=== PATIENT | male | born 1970 | race Caucasian/White ===

== ENCOUNTER 2020-12-29 12:12 | Emergency (ER) | payer BC, SELFPAY ==
--- NOTE | ~2020-12-29 | XR_ITS ---
EXAMINATION: XR knee LT 3V EXAM DATE: 12/29/2020 12:32 INDICATION: Softball injury over the summer and reinjured 2 weeks ago. TECHNIQUE: Three projections of the left knee. There is no prior study for comparison. FINDINGS: No evidence osteochondral defect or joint body in the left knee joint. There are no acute fractures or dislocations identified. There is no subcutaneous gas. There is soft tissue swelling o fabiana the patellar tendon. There are no radiopaque foreign bodies. No sizable joint effusion. 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 IMPRESSION: 1. Left knee exam without acute osseous findings. 2. Anterior soft tissue swelling. 3. Mild patellofemoral osteoarthritis. Reviewed, dictated and finalized at location B.
[2020-12-29 12:20] VITALS: BP 131/92; PULSE 94; RESP 16; TEMP 36.1; O2SAT 100
--- NOTE | 2020-12-29 13:08 | ED.LOWEXIN ---
HPI - Extremity Injury (Lower) General Chief Complaint: Extremity Injury, Lower Stated Complaint: lt knee injury Time Seen by Provider: 12/29/20 12:40 Source: patient, RN notes reviewed and old records reviewed Mode of arrival: ambulatory Limitations: no limitations History of Present Illness HPI Narrative: 50 year old male presents to [facility] care with complaints of pain to the anterior aspect of his left knee for the past 2 weeks. He state that he had injury to his left knee this summer playing softball that resolved on own. He states that about 2 weeks ago he was going up and down the ladder hanging Halloween decorations and has aggravated his left knee again. Patient states that pain is mainly with bending it and pops when bending. He also states that he has difficulty lifting or straightening out his knee. Limping gait noted on ambulation. MD complaint: knee injury Onset (ago): week(s) (2) Injury: Left: knee Related Data Allergies Allergy/AdvReac Type Severity Reaction Status Date / Time Sulfa (Sulfonamide Allergy Unknown Unknown Verified 12/29/20 12:22 Antibiotics) sulfanilamide Allergy Unknown Unknown Verified 12/29/20 12:22 Review of Systems Review of Systems: CONSTITUTIONAL: Denies fever, chills, or sweats. EYES: Denies visual changes, redness, or discharge. ENT: Denies rhinorrhea, congestion, sore throat, or otalgia. CARDIOVASCULAR: Denies chest pain, palpitations, or edema. RESPIRATORY: Denies cough or dyspnea. GASTROINTESTINAL: Denies abdominal pain, nausea, vomiting, or diarrhea. GENITOURINARY: Denies dysuria or hematuria. SKIN: Denies rash or itching. MUSCULOSKELETAL: Denies back pain, positive for anterior left knee pain with some swelling present.joint pain, or myalgia. NEUROLOGIC: Denies headache, numbness, or weakness. PSYCHIATRIC: Denies anxiety or depression. All systems reviewed & are unremarkable except as noted in HPI and below PMFSH Past Medical History Medical History (Updated 12/30/20 @ 00:00 by Fletcher Ozuna) Colon cancer screening Immunization counseling Surgical History Surgical History (Updated 12/29/20 @ 16:50 by Kati Broderick NP) History of arthroscopy of left shoulder History of arthroscopy of right shoulder Family History Family History Father Family history of atrial fibrillation Family history of congestive heart failure Other Diabetes mellitus Family history of arthritis Social History Social History (Updated 12/30/20 @ 13:47 by Kati Broderick NP) Smoking status: Never smoker Alcohol intake: current Substance use: never Living arrangements: with family Gender identity (if verbalized by the patient): Male Comments At time of signature, agree with nursing past medical, surgical, social and family history. There is no relevant family history pertinent to the presenting complaint Exam Narrative: GENERAL: Well-appearing, well-nourished, and in no acute distress. HEAD: Normocephalic, atraumatic. EYES: PERRLA and EOMI. ENT: Nares clear, no rhinorrhea or epistaxis. Mucous membranes moist.TM's normal with good light reflex, throat pink with no lesions or exudates, no tonsil enlargement NECK: Supple.no lymphadenopathy CHEST: Clear to auscultation. No respiratory distress.SAO2 98% on room air HEART: Regular rate and rhythm. No murmur heard. Normal peripheral pulses. ABDOMEN: Soft, nontender, nondistended, normal active bowel sounds. EXTREMITIES: Normal range of motion. No edema.Pain to anterior lower aspect of left knee with some swelling present, no pain to medial or lateral knee with examination, drawer test negative.[place] increasses with bending of knee and is unable to fully straighten knee out without increased pain, patient has strong pulses to his left leg and foot denies any tingling or numbness to left leg or foot, walking with limping gait. SKIN: Warm, dry, no rash. NEURO: No focal defici
== END 2020-12-29 13:30 | disposition home or self-care (01) ==
PROVIDERS: Emergency Provider Registered Nurse; PCP Internal Medicine
DX: S86.812A Strain of other muscle(s) and tendon(s) at lower leg level, left leg, initial encounter (principal); X50.3XXA Overexertion from repetitive movements, initial encounter; M17.12 Unilateral primary osteoarthritis, left knee
CPT/HCPCS: 73562; 99213; G0463

== ENCOUNTER 2021-07-04 00:37 | Day surgery (SDC) | payer BC, SELFPAY ==
[2021-06-19 15:18] VITALS: BMI 28.2
--- NOTE | 2021-07-03 13:27 | PM.HPGS ---
History of Present Illness History of Present Illness Consent: Risks, benefits, and alternatives have been discussed and questions answered. Patient agrees to proceed with procedure. Chief complaint: neoplasm screening Narrative: Owen Butler is a 51 year old male Referred for colon cancer screening. Review of Systems Review of Systems: All systems reviewed & are unremarkable except as noted in HPI and below PMFSH Past Medical History Medical History Colon cancer screening Essential (primary) hypertension Immunization counseling Mixed hyperlipidemia Surgical History Surgical History History of arthroscopy of left shoulder History of arthroscopy of right shoulder Family History Family History Father Family history of atrial fibrillation Family history of congestive heart failure Other Diabetes mellitus Family history of arthritis Social History Social History Smoking status: Current some day smoker Tobacco type: cigars Additional smoking assessment comments: OCC CIGAR Alcohol intake: current Drinks per week: 5 Substance use: never Substance use type: does not use Living arrangements: with family Gender identity (if verbalized by the patient): Male Spiritual care concerns: No Meds Home Medications and Allergies Home Medications Medication Instructions Recorded Confirmed Type losartan 25 mg tablet 25 mg PO DAILY #30 tablet 06/04/21 07/04/21 Rx Allergies Allergy/AdvReac Type Severity Reaction Status Date / Time Sulfa (Sulfonamide Allergy Unknown Unknown Verified 07/04/21 08:42 Antibiotics) sulfanilamide Allergy Unknown Unknown Verified 07/04/21 08:42 Exam Resp: Auscultation: clear to auscultation bilaterally Cardio: Rate: regular rate Rhythm: regular rhythm GI: GI Palp: Yes Soft to palpation and No Tenderness to palpation present (GI) Assessment and Plan Assessment and plan (1) Colon cancer screening: Code(s): Z12.11 - Encounter for screening for malignant neoplasm of colon Status: Acute Assessment and Plan: Colonoscopy with possible biopsy or polypectomy or cautery or injection of substances.
[2021-07-04 08:35] VITALS: BP 133/91; PULSE 78; RESP 18; TEMP 35.8; O2SAT 100; BMI 28.0
--- NOTE | 2021-07-04 08:48 | P.PNAN_ITS ---
Anes - Initial Pre Proc Eval Procedure: Operation Date: 07/04/21 10:00 Proposed Procedures p Screening Colonoscopy - Shane Coffey MD Date/Time: 07/04/21 08:48 Surgeon: Shane Coffey MD Pre Op Diagnosis: neoplasm screening Patient Data Age: 51 Gender: M Height: 1.83 m Weight: 93.7 kg Last Vital Signs Temp 35.8 C L 07/04/21 08:35 Pulse 78 07/04/21 08:35 Resp 18 07/04/21 08:35 BP 133/91 H 07/04/21 08:35 Pulse Ox 100 07/04/21 08:35 Allergies Allergy/AdvReac Type Severity Reaction Status Date / Time Sulfa (Sulfonamide Allergy Unknown Unknown Verified 07/04/21 08:42 Antibiotics) sulfanilamide Allergy Unknown Unknown Verified 07/04/21 08:42 Home Medications Medication Instructions Recorded Confirmed Type losartan 25 mg tablet 25 mg PO DAILY #30 tablet 06/04/21 07/04/21 Rx Patient hx anesthesia problems: none Family hx anesthesia problems: none Results Review: All pre-operative results and documents have been reviewed as part of the pre-operative evaluation. [facility] Past Medical History Medical History (Updated 07/04/21 @ 08:49 by Rik Ruffin DO) Colon cancer screening Essential (primary) hypertension Immunization counseling Mixed hyperlipidemia Surgical History Surgical History History of arthroscopy of left shoulder History of arthroscopy of right shoulder Family History Family History Father Family history of atrial fibrillation Family history of congestive heart failure Other Diabetes mellitus Family history of arthritis Social History Social History Smoking status: Current some day smoker Tobacco type: cigars Additional smoking assessment comments: OCC CIGAR Alcohol intake: current Drinks per week: 5 Substance use: never Substance use type: does not use Living arrangements: with family Gender identity (if verbalized by the patient): Male Spiritual care concerns: No Anes - Eval Final PreProcedure Day of Procedure 07/04/21 08:48 Patient weight: overweight Heart: regular rate and rhythm Lungs: clear to auscultation and normal air movement Airway: Mallampati scale class II Neurological: alert and oriented Last oral intake: >/= 8 hours ASA classification: II Emergent: no Anesthetic plan: proceed Anesthesia type and monitoring: general GIVS and standard monitoring Results Review: All pre-operative results and documents have been reviewed as part of the pre-operative evaluation. Informed Consent: The patient's anesthetic plan and its attendant risks and benefits were discussed with the patient/family/POA. Questions were solicited and answers provided to the satisfaction of the patient/family/POA.
[2021-07-04] MEDS: LACTATED RINGERS 1,000 ML 150 ML IV CONT (08:55)
[2021-07-04] MEDS: SIMETHICONE ORAL SUSPENSION 20 MG/0.3 ML 30 ML BOTTLE 0.6 ML IRRIGATION (09:48)
[2021-07-04 09:55] VITALS: BP 110/75; PULSE 82; RESP 18; O2SAT 100
[2021-07-04 10:05] VITALS: BP 125/90; PULSE 68; RESP 17; O2SAT 100
[2021-07-04 10:15] VITALS: BP 124/84; PULSE 63; RESP 14; O2SAT 100
== END 2021-07-04 10:30 | disposition home or self-care (01) ==
PROVIDERS: PCP Internal Medicine; Visit Provider Internal Medicine Gastroenterology
PROC: 0DJD8ZZ Inspection of Lower Intestinal Tract, Via Natural or Artificial Opening Endoscopic (ICD-10-PCS; CPT 45378; principal; 2021-07-04 10:00)
DX: Z12.11 Encounter for screening for malignant neoplasm of colon (principal); K57.30 Diverticulosis of large intestine without perforation or abscess without bleeding; I10 Essential (primary) hypertension; E78.2 Mixed hyperlipidemia; Z72.0 Tobacco use
CPT/HCPCS: 45378; J2704; J7120

== ENCOUNTER 2021-12-27 07:59 | Outpatient (CLI) | payer BC, SELFPAY ==
[2021-12-27 19:35] LABS: Alanine Aminotransferase 37 U/L (6-50); Albumin Level 4.7 g/dL (3.5-5.1); Alkaline Phosphatase 69 U/L (38-126); Anion Gap 11 mmol/L (8-16); Aspartate Amino Transferase 35 U/L (17-59); Bilirubin,Total 0.7 mg/dL (0.2-1.3); Blood Urea Nitrogen 18 mg/dL (9-20); Calcium 9.4 mg/dL (8.4-10.2); Carbon Dioxide 24 mmol/L (22-30); Chloride 102 mmol/L (98-107); Cholesterol 212 mg/dL (0-200); Estimated Glomerular Filt Rate > 60; Glucose 115 mg/dL (65-110); HDL Direct 42 mg/dL; Sodium 137 mmol/L (137-145); Triglycerides 183 mg/dL (<150)
[2021-12-27 19:46] LABS: LDL Cholesterol Direct 103 mg/dL
== END 2021-12-27 08:00 | disposition home or self-care (01) ==
LOC: ANHGOSHLAB 08:01
PROVIDERS: PCP Family Medicine; Visit Provider Family Medicine
DX: E78.2 Mixed hyperlipidemia (principal); I10 Essential (primary) hypertension
CPT/HCPCS: 36415; 80053; 80061

== ENCOUNTER 2022-09-18 08:28 | Outpatient (CLI) | payer BC, SELFPAY ==
[2022-09-18 14:44] LABS: Basophils Percent Auto 0.3 % (0.2-1.2); Eosinophils Percent Auto 0.5 % (0-4.4); Hematocrit 40.2 % (42.0-52.0); Immature Granulocyte Absolute 0.02 K/mm3 (0.00-0.031); Immature Granulocyte Percent A 0.5 % (0-0.5); Lymphocytes Absolute Auto 1.72 K/mm3 (0.9-3.2); Lymphocytes Percent Auto 45.7 % (18.3-44.2); Mean Corpuscular HGB Conc 34.8 g/dl (32-36); Mean Corpuscular Hemoglobin 33.2 pg (26-34); Mean Corpuscular Volume 95.3 fl (80-100); Mean Platelet Volume 10.1 fl (7.4-10.4); Monocytes Absolute Auto 0.3 K/mm3 (0.1-0.6); Monocytes Percent Auto 8.2 % (2.6-8.5); Neutrophils Absolute Auto 1.7 K/mm3 (1.3-6.7); Neutrophils Percent Auto 44.8 % (45.5-73.1); Platelet Count Result 151 k/mm3 (150-375); Red Blood Count 4.22 M/mm3 (4.6-6.20); Red Cell Distribution Width 12.8 % (11.5-14.5); White Blood Count 3.8 K/mm3 (4.5-10.0)
[2022-09-18 16:52] LABS: Alanine Aminotransferase 27 U/L (6-50); Albumin Level 4.6 g/dL (3.5-5.1); Alkaline Phosphatase 55 U/L (38-126); Anion Gap 5 mmol/L (8-16); Aspartate Amino Transferase 45 U/L (17-59); Bilirubin,Total 0.6 mg/dL (0.2-1.3); Blood Urea Nitrogen 15 mg/dL (9-20); Calcium 9.5 mg/dL (8.4-10.2); Carbon Dioxide 30 mmol/L (22-30); Chloride 101 mmol/L (98-107); Cholesterol 230 mg/dL (0-200); Estimated Glomerular Filt Rate > 60; Glucose 92 mg/dL (65-110); HDL Direct 41 mg/dL; Potassium 4.3 mmol/L (3.4-5.0); Sodium 136 mmol/L (137-145); Triglycerides 221 mg/dL (<150)
[2022-09-18 17:04] LABS: LDL Cholesterol Direct 106 mg/dL
== END 2022-09-18 08:29 | disposition home or self-care (01) ==
PROVIDERS: PCP Family Medicine; Visit Provider Family Medicine
DX: R53.83 Other fatigue (principal); Z13.29 Encounter for screening for other suspected endocrine disorder; Z13.220 Encounter for screening for lipoid disorders; Z13.228 Encounter for screening for other metabolic disorders
CPT/HCPCS: 36415; 80053; 80061; 84443; 85025

== ENCOUNTER 2022-11-20 11:37 | Outpatient (CLI) | payer BC, SELFPAY ==
[2022-11-20 13:31] LABS: Appearance Urine Clear (Clear); Bilirubin Urine Negative (Negative); Blood Urine Negative (Negative); Color Urine Yellow (Yellow); Glucose Urine UA Negative (Negative); Ketones Urine Negative (Negative); Leukocyte Esterase Ur Negative LEU/UL (NEGATIVE); Nitrate Urine Negative (Negative); Protein Urine Negative (Negative); Specific Grav Ur 1.009 (1.001-1.035); Urobilinogen Urine 0.2 mg/dL (<2.0)
[2022-11-20 13:48] LABS: Add Urine Microscopic? NO
== END 2022-11-20 11:38 | disposition home or self-care (01) ==
LOC: ANHGOSHLAB 11:40
PROVIDERS: PCP Family Medicine; Visit Provider Family Medicine
DX: R39.9 Unspecified symptoms and signs involving the genitourinary system (principal)
CPT/HCPCS: 81003

== ENCOUNTER 2023-02-04 00:13 | Emergency (ER) | payer BC, SELFPAY ==
--- NOTE | ~2023-02-04 | XR_ITS ---
Clinical Indication: Chest pain PA and lateral views of the chest: Comparison: 11/09/2018 Findings: The lungs are clear, without evidence of focal consolidation or pleural effusion. Cardiome diastinal silhouette is within normal limits. Bones and soft tissues are unremarkable. Impression: Normal chest. Reviewed, dictated and finalized at location . 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
--- NOTE | 2023-02-04 00:19 | ECG_ITS ---
Measurements Intervals [place] Rate: 74 P: 19 LA: 159 QRS: 32 QRSD: 117 T: 36 QT: 376 QTc: 418 Interpretive Statements SINUS RHYTHM MODERATE INTRAVENTRICULAR CONDUCTION DELAY [110+ ms QRS DURATION] NO PREVIOUS ECG AVAILABLE FOR COMPARISON Electronically Signed On 02-04-2023 13:27:48 POWER STATION OPERATOR by Amarilys Ernandez M.D.
[2023-02-04 00:37] LABS: Basophils Percent Auto 0.6 % (0.2-1.2); Eosinophils Percent Auto 0.8 % (0-4.4); Hematocrit 40.2 % (42.0-52.0); Hemoglobin 13.9 g/dL (14.0-18.0); Immature Granulocyte Absolute 0.01 K/mm3 (0.00-0.031); Immature Granulocyte Percent A 0.2 % (0-0.5); Lymphocytes Absolute Auto 2.35 K/mm3 (0.9-3.2); Mean Corpuscular HGB Conc 34.6 g/dl (32-36); Mean Corpuscular Hemoglobin 32.8 pg (26-34); Mean Corpuscular Volume 94.8 fl (80-100); Mean Platelet Volume 9.8 fl (7.4-10.4); Monocytes Absolute Auto 0.4 K/mm3 (0.1-0.6); Monocytes Percent Auto 8.4 % (2.6-8.5); Neutrophils Absolute Auto 2.2 K/mm3 (1.3-6.7); Platelet Count Result 156 k/mm3 (150-375); Red Blood Count 4.24 M/mm3 (4.6-6.20); Red Cell Distribution Width 12.9 % (11.5-14.5)
[2023-02-04 00:39] VITALS: BP 161/99; PULSE 76; RESP 16; TEMP 36.1; O2SAT 100
[2023-02-04 00:47] LABS: Alanine Aminotransferase 29 U/L (6-50); Albumin Level 4.9 g/dL (3.5-5.1); Alkaline Phosphatase 64 U/L (38-126); Anion Gap 11 mmol/L (8-16); Aspartate Amino Transferase 34 U/L (17-59); Bilirubin,Total 0.7 mg/dL (0.2-1.3); Blood Urea Nitrogen 19 mg/dL (9-20); Calcium 10.6 mg/dL (8.4-10.2); Carbon Dioxide 26 mmol/L (22-30); Chloride 102 mmol/L (98-107); Estimated CRCL calculation 77 ml/min; Estimated Glomerular Filt Rate > 60; Glucose 103 mg/dL (65-110); Lipase 99 U/L (23-300); Potassium 3.8 mmol/L (3.4-5.0); Sodium 139 mmol/L (137-145)
[2023-02-04 00:48] LABS: Partial Thromboplastin Time 26.3 SECONDS (22.3-36.8); Prothrombin Time 13.3 Seconds (11.1-14.7)
[2023-02-04 00:58] LABS: Troponin I < 0.012 ng/mL (0.000-0.034)
[2023-02-04 01:55] VITALS: BP 137/102; PULSE 72; RESP 13; O2SAT 98
[2023-02-04] MEDS: ASPIRIN 81 MG CHEWABLE TABLET 324 MG PO (01:59)
--- NOTE | 2023-02-04 02:05 | ED.CHESTPAIN ---
HPI - Chest Pain General Chief Complaint: Chest Pain Stated Complaint: chest discomfort Time Seen by Provider: 02/04/23 02:05 History of Present Illness HPI narrative: Patient is a 52-year-old male with history of hypertension presenting with chest pain. Patient states that he developed left-sided chest pain approximately 9 hours ago. States that he had a chill that ran down his left arm. He checked his blood pressure at home and it was slightly elevated. He repeated several times and continued to go up so he came in for evaluation. States with his symptoms have since improved. He denies any current pain. No shortness of breath, nausea or vomiting, diaphoresis, leg swelling. No numbness or weakness, speech or vision changes. No further complaints. Related Data Allergies Allergy/AdvReac Type Severity Reaction Status Date / Time Sulfa (Sulfonamide Allergy Unknown Unknown Verified 02/04/23 01:58 Antibiotics) sulfanilamide Allergy Unknown Unknown Verified 02/04/23 01:58 Review of Systems Review of Systems: All systems reviewed & are unremarkable except as noted in HPI and below PMFSH Past Medical History Medical History Colon cancer screening Essential (primary) hypertension Immunization counseling Mixed hyperlipidemia Surgical History Surgical History History of arthroscopy of left shoulder History of arthroscopy of right shoulder Family History Family History Father Family history of atrial fibrillation Family history of congestive heart failure Other Diabetes mellitus Family history of arthritis Social History Social History Smoking status: Current some day smoker Tobacco type: cigars Additional smoking assessment comments: OCC CIGAR Alcohol intake: current Drinks per week: 5 Substance use: never Substance use type: does not use Lack of Transportation: No Lack of Food: Never True Current Housing: I Have Housing Concerned About Future Housing: No Difficulty Paying Gas/Electric Bills: No Difficulty Paying for Meds: No Currently Unemployed: No Education: Bachelor's Degree Difficulty w/ Childcare or Family Care: No Living arrangements: with family Gender identity (if verbalized by the patient): Male Spiritual care concerns: No Exam Narrative: GENERAL: Well-appearing, No acute distress, pleasant and cooperative HEAD: Normocephalic, atraumatic. EYES: PERRLA and EOMI. ENT: grossly unremarkable NECK: Supple. CHEST: Clear to auscultation. No respiratory distress. no chest wall tenderness HEART: Regular rate and rhythm. ABDOMEN: Soft, nontender, nondistended EXTREMITIES: Normal range of motion. No edema. SKIN: Warm, dry, no rash. NEURO: No focal deficits. Alert and oriented x3. PSYCH: Normal mood and affect. Course Vital Signs Vital signs: Vital Signs Temperature 97 F L 02/04/23 00:39 Pulse Rate 76 02/04/23 00:39 Respiratory Rate 16 02/04/23 00:39 Blood Pressure 161/99 H 02/04/23 00:39 Pulse Oximetry 100 02/04/23 00:39 Oxygen Delivery Room Air 02/04/23 00:39 Temperature 97 F L 02/04/23 00:39 Pulse Rate 69 02/04/23 04:47 Respiratory Rate 13 02/04/23 04:47 Blood Pressure 126/93 H 02/04/23 04:47 Pulse Oximetry 98 02/04/23 04:47 Oxygen Delivery Room Air 02/04/23 00:39 MDM - Chest Pain MDM Narrative Medical decision making narrative: patient is a 52-year-old male presenting with chest pain. Patient is hypertensive, otherwise vitals are within normal limits. EKG per my interpretation shows normal sinus rhythm, normal axis and intervals, no ST elevations or depressions. Chest x-ray without acute abnormalities. Blood work is unremarkable. Troponin undetectable x2.
[2023-02-04 02:57] VITALS: BP 138/96; PULSE 75; RESP 18; O2SAT 97
[2023-02-04 03:53] LABS: Troponin I < 0.012 ng/mL (0.000-0.034)
[2023-02-04 04:47] VITALS: BP 126/93; PULSE 69; RESP 13; O2SAT 98
== END 2023-02-04 04:47 | disposition home or self-care (01) ==
PROVIDERS: Emergency Provider Emergency Medicine; PCP Family Medicine
DX: R07.89 Other chest pain (principal); I10 Essential (primary) hypertension; E78.5 Hyperlipidemia, unspecified
CPT/HCPCS: 36415; 71046; 80053; 83690; 84484; 85025; 85610; 85730; 93005; 99284; A9270

== ENCOUNTER 2023-07-08 08:39 | Outpatient (CLI) | payer BC, SELFPAY | END 2023-07-08 08:40 | disposition home or self-care (01) | LOC: ANHGOSHLAB 08:41 | PROVIDERS: PCP Family Medicine; Visit Provider Family Medicine | DX: Z12.5 Encounter for screening for malignant neoplasm of prostate (principal) | CPT/HCPCS: 36415; 84153; G0103 ==

== ENCOUNTER 2023-09-06 08:18 | Emergency (ER) | payer BC, SELFPAY ==
[2023-09-06 08:26] VITALS: BP 122/91; PULSE 89; RESP 16; TEMP 36.3; O2SAT 100
--- NOTE | 2023-09-06 08:54 | ED.EXTPRO ---
HPI - Extremity Problem General Chief complaint: Extremity Problem,Nontraumatic Stated complaint: Swollen Right Foot Time Seen by Provider: 09/06/23 08:44 Source: patient and RN notes reviewed Mode of arrival: ambulatory Limitations: no limitations History of Present Illness HPI Narrative: Patient presents today complaining of right ankle redness, swelling, and pain x5 days. Denies injury or trauma. He has been using motrin and ice without relief. Has been treated for presumed gout several times in the past. Currently rates his pain 09/09. Denies numbness or tingling. Related Data Allergies Allergy/AdvReac Type Severity Reaction Status Date / Time Sulfa (Sulfonamide Allergy Unknown Unknown Verified 09/06/23 08:37 Antibiotics) Review of Systems Review of Systems: CONSTITUTIONAL: Denies body aches, fever, chills, or sweats. EYES: Denies visual changes, redness, or discharge. ENT: Denies rhinorrhea, congestion, sore throat, or otalgia. CARDIOVASCULAR: Denies chest pain, palpitations, or edema. RESPIRATORY: Denies cough or dyspnea. GASTROINTESTINAL: Denies abdominal pain, nausea, vomiting, or diarrhea. GENITOURINARY: Denies dysuria or hematuria. SKIN: Denies rash, itching, or wounds. MUSCULOSKELETAL: + right ankle redness and swelling NEUROLOGIC: Denies headache, numbness, tingling, or weakness. PSYCH: Denies depression or anxiety. 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 Smoking status: Current some day smoker Tobacco type: cigars Additional smoking assessment comments: OCC CIGAR Alcohol intake: current Drinks per week: 5 Substance use: never Substance use type: does not use Do You Feel Safe in your Home?: Yes Lack of Transportation: No Lack of Food: Never True Current Housing: I Have Housing Concerned About Future Housing: No Difficulty Paying Gas/Electric Bills: No Difficulty Paying for Meds: No Currently Unemployed: No Education: Bachelor's Degree Difficulty w/ Childcare or Family Care: No Living arrangements: with family Gender identity (if verbalized by the patient): Male Spiritual care concerns: No Comments At time of signature, I have reviewed and agree with nursing past medical, surgical, social and family history unless otherwise noted. Please see nursing chart for further information. There is no relevant family history pertinent to the presenting complaint Exam Narrative: GENERAL: Well-appearing, well-nourished, and in no acute distress. HEAD: Normocephalic, atraumatic. EYES: EOMI. No redness or drainage. Conjunctivae normal. ENT: Mucous membranes pink and moist. NECK: Normal AROM. CHEST: No respiratory distress. EXTREMITIES: Right ankle: Mild swelling and erythema about the ankle. Tenderness medially, laterally, anteriorly. Discomfort with range of motion. No tenderness, redness, or swelling to the foot or lower leg. No tenderness to the calf. Negative Homans. Distal sensation intact. Capillary refill normal. Pedal pulse normal. SKIN: Warm, dry, no rash. Capillary refill normal. Normal skin turgor. NEURO: No focal deficits. Alert and oriented x3. Gait steady. PSYCH: Normal affect. No signs of depression or anxiety. Course Course Zana
== END 2023-09-06 09:09 | disposition home or self-care (01) ==
PROVIDERS: Emergency Provider Nurse Practitioner; PCP Family Medicine
DX: M10.9 Gout, unspecified (principal); F17.290 Nicotine dependence, other tobacco product, uncomplicated; I10 Essential (primary) hypertension; E78.2 Mixed hyperlipidemia
CPT/HCPCS: 99213; G0463

== ENCOUNTER 2024-08-30 15:06 | Outpatient (CLI) | payer BC, SELFPAY ==
--- NOTE | ~2024-08-30 | XR_ITS ---
Right Hand Technique: PA and lateral views were obtained. Clinical History: Gout Findings: No acute fracture or dislocation is seen. Osseous alignment is anatomic. Joint spaces are p reserved. Soft tissues are unremarkable. Impression: Unremarkable right hand. Reviewed, dictated and finalized at location M. Impression: Unremarkable right hand.
--- NOTE | ~2024-08-30 | XR_ITS ---
Left Hand Technique: PA and lateral views were obtained. Clinical History: Gout Findings: No acute fracture or dislocation is seen. Osseous alignment is anatomic. Joint spaces are p reserved. Soft tissues are unremarkable. Impression: Unremarkable left hand. Reviewed, dictated and finalized at location M. Impression: Unremarkable left hand.
--- NOTE | ~2024-08-30 | XR_ITS ---
Lateral and sunrise views of the right patella CLINICAL HISTORY: Pain FINDINGS: No fracture or dislocation seen. Minimal patellar spurring present. There is prepatellar so ft tissue thickening/edema. No joint effusion evident. IMPRESSION: No fracture or dislocation. Minimal degenerative change of the patellofemoral compartment. Prepatellar soft tissue thickening or edema. Correlate for bursitis or posttraumatic edema. Reviewed, dictated and finalized at [facility]. IMPRESSION: No fracture or dislocation. Minimal degenerative change of the patellofemoral compartment. Prepatellar soft tissue thickening or edema. Correlate for bursitis or posttrau matic edema.
--- NOTE | ~2024-08-30 | XR_ITS ---
Left foot Technique: AP and lateral views were obtained. Clinical History: Gout Findings: No acute fracture or dislocation is seen. Osseous alignment is anatomic. Joint spaces are p reserved without erosive or degenerative change. Soft tissues are unremarkable. Impression: Unremarkable left foot radiographs. Reviewed, dictated and finalized at location . Impression: Unremarkable left foot radiographs.
--- NOTE | ~2024-08-30 | XR_ITS ---
Right foot Technique: AP and lateral views were obtained. Clinical History: Gout Findings: No acute fracture or dislocation is seen. Osseous alignment is anatomic. Joint spaces are p reserved without erosive or degenerative change. Soft tissues are unremarkable. Impression: Unremarkable right foot radiographs. Reviewed, dictated and finalized at location . Impression: Unremarkable right foot radiographs.
--- NOTE | ~2024-08-30 | XR_ITS ---
Right Knee Technique: AP, lateral, and sunrise views were obtained. Clinical History: Pain Findings: No fracture or dislocation is seen. Osseous alignment is anatomic. Minimal patellar spurrin g present. There is prepatellar soft tissue thickening or edema. No joint effusion is seen. Impression: Minimal patellar spurring. Prepatellar soft tissue thickening or edema. Correlate for possible prepatellar bursitis. Reviewed, dictated and finalized at location M. Impression: Minimal patellar spurring. Prepatellar soft tissue thickening or edema. Correlate for possible prepatellar bursitis.
== END 2024-08-30 15:07 | disposition home or self-care (01) ==
PROVIDERS: PCP Family Medicine; Visit Provider Family Medicine
DX: M17.11 Unilateral primary osteoarthritis, right knee (principal); M25.761 Osteophyte, right knee; M10.9 Gout, unspecified; M79.89 Other specified soft tissue disorders
CPT/HCPCS: 73120; 73560; 73562; 73620

== ENCOUNTER 2024-09-09 08:15 | Outpatient (CLI) | payer BC, SELFPAY ==
--- OUTSIDE RECORDS SUMMARY | 2024-09-09 08:18 | XMS_ITS | Referral Summary ---
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 Social History Tobacco Use Types Packs/Day Years Used Date Smoking Tobacco: Some Days Cigars Smokeless Tobacco: Never Personal Safety Answer Date Recorded Getting School Help Needed Not on file 05/02 Sex and Gender Information Value Date Recorded Sex Assigned at Not on file Legal Sex Male 2:22 PM CDT Gender Identity Not on file Sexual Orientation Not on file Last Filed Vital Signs Vital Sign Reading Time Taken Comments Blood Pressure 137/90 06/11/2017 10:35 AM CDT Pulse 77 06/11/2017 10:35 AM CDT Temperature 36.5 C (97.7 F) 01/24/2020 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
--- OUTSIDE RECORDS SUMMARY | 2024-09-09 08:18 | XMS_ITS | Clinical Summary ---
Author Organization [facility] Address [facility] [place] [address] Care Team Providers Care Composite Assembler Name Role Phone Ronal Barriga Primary Care Provider [phone] Allergies Active Allergy Reactions Criticality Noted Date Comments Sulfa Antibiotics Unknown,Rash Medium 01/14/2020 Medications metoprolol tartrate (LOPRESSOR) 100 MG tablet Take one tablet (100mg total) by mouth ONE HOUR PRIOR TO CORONARY CTA. 1 tablet 4 Active aspirin EC (ECOTRIN) 81 MG tablet Take 1 tablet (81 mg total) by mouth daily. 4 Active rosuvastatin (CRESTOR) 10 MG tablet Take 1 tablet (10 mg total) by mouth nightly at bedtime. 90 tablet 2 5 Active amLODIPine-Olme sartan 10-20 MG Tab Take 1 tablet by mouth daily. 30 tablet 5 Active amLODIPine-Olme sartan 10-20 MG Tab Take 1 tablet by mouth daily. 4 08/12/19 25 Discontinu ed(Reorder ) Active Problems Problem Noted Date Diagnosed Date Essential (primary) hypertension 12/02/2023 Encounters Date Type Department Care Team Description 08/11/2024 Telephone [facility] [address] Nataliia Garcia MD Refill Request (AMLODIPINE/OLMESARTAN) 06/30/2024 Telephone [facility] [address] Nataliia Garcia MD Refill Request (ROSUVASTATIN) from Last 3 Months Immunizations Immunization Administration Dates Next Due Anthrax Vaccine 11/08/2017, 4,08/06/2009,04/04,02/13/2002 Dtap (Acel-Immune) 11/08/2006 H1N1 Injectable 2008 Influenza 08/06/2009 Hepatitis A (Havrix 1440 El.U) 06/05/1998,1996 Hepatitis B (Generic: Adult) 10/06/2010,02/04/20 10,09/07/2009 Influenza (FluMist) 01/08/2015, 4,01/01/2013,12/01,02/03/2010,01/08/2009,12/06/19 08,02/12/2007 Influenza (Generic) 01/06/2016, 2,06/21/2006,01/01,02/13/2003,01/05/2002,08/14/19 02,01/31/2000,12/24/1998 Influenza Adult (Generic) 02/04/2021,09/2019,01/03/2019,12/01,02/01/2017 MENINGOCOCCAL A C Y&W-135 oligosaccharide (MENVEO) 10/06/2010 MMR (MMRII) 03/06/2013,02/25/1995 Meningococcal (Menomune) 02/12/2004 Polio IPV (Ipol) 01/03/2018 Polio Opv (Generic) 08/24/1996 Small Pox 06/11/2009 Td (TDVAX) 08/24/1996 Tdap (Generic) 02/01/2017,11/08/2006 Typhoid (Typhim ) 01/31/2018, 4,04/04/2011,08/02 Typhoid Vaccine, Akd 08/24/1996 Typhoid Vi Polysaccharide Va cc 25 Mcg/0.5Ml Im Soln 05/17/2006,02/12/2004,01/05/2002,10/02 Yellow Fever (YF- Vax) 03/10/2010,06/05/1998 Family History Medical History Relation Comments Atrial fibrillation Brother Atrial fibrillation Father COPD Father Relation Status Comments Brother Alive Father Social History Tobacco Use Types Packs/Day Years Used Date Smoking Tobacco: Some Days Cigars Smokeless Tobacco: Never Tobacco Cessation:Ready to Q uit: Not Asked; Counseling Given: Not Answered Alcohol Use Standard Drinks/Week Comments Not Currently 0 (1 standard drink = 0.6 oz pur e alcohol) Sex and Gender Information Value Date Recorded Sex Assigned at Not on file Legal Sex Male 12:52 PM CDT Gender Identity Not on file Sexual Orientation Not on file 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 Not on file Not on file Last Filed Vital Signs Vital Sign Reading Time Taken Comments Blood Pressure 120/78 12/04/2023 1:02 PM CDT Pulse 75 12/04/2023 1:02 PM CDT Temperature 36.7 C (98 F) 09/29/2023 12:00 PM CDT Respiratory Rate 18 09/29/2023 3:40 PM CDT Oxygen Saturation 97% 12/04/2023 1:02 PM CDT Inhaled Oxygen Concentration - - Weight 98.4 kg (217 lb) 12/04/2023 1:02 PM CDT Height 182.9 cm (6') 12/04/2023 1:02 PM CDT Body Mass Index 29.43 12/04/2023 1:02 PM CDT Plan of Treatment Upcoming Encounters Date Type Department Care Team (Late st Contact Info) Description 02/14/2025 12:45 PM DIE SIZER Office Visit [facility], [address] [place] [address] Nataliia Garcia MD [facility] [address] [place] [address] Health Maintenance Due Date Last Done Comments ASCVD LDL 1970 Colorectal Cancer Screening Colonoscopy (10 Years) 1970 Annual Physical 1973 Hepatitis C 1988 Pneumococcal Vaccine: 50+ Years (1 of 2 - PCV) 1989 Zoster Vaccines (1 of 2) 2020 COVID-19 Vaccine (2 - season) 2023 11/12/2020 DTaP, Tdap and Td Vaccines (4 - Td or Tdap) 02/01/2027 02/01/2017, 11/08/2006, 11/08/2006, Additional history exists Hepatitis B Vaccines Completed 10/06/2010, 02/03/2010, 09/07/2009 Meningococcal Vaccine Aged Out 10/06/2010, 004 No longer eligible based on patient's age to complete this topic Meningococcal B Vaccine Aged Out No l onger eligible based on patient's age to complete this topic RSV Immunizations Under 20 Months Aged Out No longer eligible based on patient's age to complete this topic Insurance [facility] Care Teams Composite Assembler Relationship Specialty Start Date End Date Ronal Barriga DO [facility] [address] [address] PCP - General FAMILY PRACTICE 09/29/23
--- OUTSIDE RECORDS SUMMARY | 2024-09-09 08:18 | XMS_ITS | Clinical Summary ---
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 Surgical History Surgery Date Site/Laterality Comments EAR SURGERY 06/11/2017 Left wide excision of left superior helix lesion with complex closure with frozen sections HEMIARTHROPLASTY SHOULDER FRACTURE Medical History Medical History Date Comments 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 Family History Medical History Relation Name Comments Arthritis Father Gout Father Heart attack Father Cancer Mother Relation Name Status Comments Father Mother Social History Tobacco Use Types Packs/Day Years Used Date Smoking Tobacco: Some Days Cigars Smokeless Tobacco: Never Personal Safety Answer Date Recorded Getting School Help Needed Not on file 05/02 Sex and Gender Information Value Date Recorded Sex Assigned at Not on file Legal Sex Male 2:22 PM CDT Gender Identity Not on file Sexual Orientation Not on file Obstetrics History Last Filed Vital Signs Vital Sign Reading Time Taken Comments Blood Pressure 137/90 06/11/2017 10:35 AM CDT Pulse 77 06/11/2017 10:35 AM CDT Temperature 36.5 C (97.7 F) 01/24/2020 8:12 AM VAULT CLERK Respiratory Rate 18 12/22/2023 3:19 PM CDT Oxygen Saturation 100% 06/11/2017 10:35 AM CDT Inhaled Oxygen Concentration - - Weight 96.2 kg (212 lb) 12/22/2023 3:19 PM CDT Height 182.9 cm (6') 12/22/2023 3:19 PM CDT Body Mass Index 28.75 12/22/2023 3:19 PM CDT Plan of Treatment Health Maintenance Due Date Last Done Comments Colon Cancer Screening-Colonoscopy 1970 Depression Screening 1970 Hepatitis C Screening 1970 Prostate Cancer Screening-PSA 1970 Regular Well Visit/Exam 18-64 1988 Pneumococcal vaccine <65 (1 of 2 - PCV) 1989 Zoster Vaccine (1 of 2) 2020 Covid-19 Vaccine (2 - 2023-2 5 season) 2023 11/12/2020 Influenza Vaccine (#1) 2024 , 01/08/2020, 01/03/2019, Additional history exists DTaP/Tdap/Td Vaccine (4 - Td or Tdap) 02/01/2027 02/01/2017, 11/08/2006, 11/08/2006, Additional history exists Hepatitis B Screening Completed 10/06/2010 , 02/03/2010, 09/07/2009 Care Teams Drill Sharpener Relationship Specialty Start Date End Date Kike Day MD [address] [place] [address] PCP - General Internal Medicine 05/24/19
[2024-09-09 18:49] LABS: Hematocrit 40.7 % (42.0-52.0); Hemoglobin 13.7 g/dL (14.0-18.0); Immature Granulocyte Percent A 0.6 % (0-0.5); Lymphocytes Absolute Auto 1.82 K/mm3 (0.9-3.2); Mean Corpuscular HGB Conc 33.7 g/dl (32-36); Mean Corpuscular Hemoglobin 32.0 pg (26-34); Mean Corpuscular Volume 95.1 fl (80-100); Nucleated Red Blood Cells Absolute Auto 0.000 K/mm3 (0.0-0.012); Nucleated Red Blood Cells Perc 0.0 % (0.0-0.2); Platelet Count Result 178 k/mm3 (150-375); Red Blood Count 4.28 M/mm3 (4.6-6.20); White Blood Count 4.6 K/mm3 (4.5-10.0)
[2024-09-09 19:00] LABS: Alanine Aminotransferase 44 U/L (6-50); Albumin Level 4.5 g/dL (3.5-5.1); Alkaline Phosphatase 52 U/L (38-126); Anion Gap 10 mmol/L (4-12); Aspartate Amino Transferase 53 U/L (17-59); Bilirubin,Total 0.5 mg/dL (0.2-1.3); Blood Urea Nitrogen 22 mg/dL (9-20); Calcium 9.6 mg/dL (8.4-10.2); Carbon Dioxide 24 mmol/L (22-30); Chloride 102 mmol/L (98-107); Cholesterol 135 mg/dL (0-200); Estimated Glomerular Filt Rate > 60; Glucose 108 mg/dL (65-110); HDL Direct 44 mg/dL; Potassium 4.4 mmol/L (3.4-5.0); Sodium 136 mmol/L (137-145); Total Protein 7.8 g/dL (6.3-8.2); Triglycerides 117 mg/dL (<150); Uric Acid 9.0 mg/dL (3.5-8.5)
[2024-09-09 21:46] LABS: Prostate Specific Antigen 1.9 ng/mL (< OR = 4.0)
[2024-09-09 22:05] LABS: Vitamin B12 709.0 pg/mL (239-931)
[2024-09-12 23:07] LABS: Free Testosterone (Direct) 9.0 pg/mL (7.2-24.0)
== END 2024-09-09 08:16 | disposition home or self-care (01) ==
LOC: ANHGOSHLAB 08:16
PROVIDERS: PCP Family Medicine; Visit Provider Family Medicine
DX: I10 Essential (primary) hypertension (principal); E78.2 Mixed hyperlipidemia; N52.9 Male erectile dysfunction, unspecified; Z00.00 Encounter for general adult medical examination without abnormal findings; Z12.5 Encounter for screening for malignant neoplasm of prostate; M10.9 Gout, unspecified
CPT/HCPCS: 36415; 80053; 80061; 82172; 82306; 82607; 84153; 84402; 84550; 85025; G0103

== ENCOUNTER 2024-11-04 08:12 | Outpatient (CLI) | payer BC, SELFPAY ==
--- OUTSIDE RECORDS SUMMARY | 2024-11-04 08:15 | XMS_ITS | Clinical Summary ---
Author Organization [facility] [address] Address [address] [place] [address] Care Team Providers Care Knot Tying Operator Name Role Phone Kike Day MD Primary Care Provider [phone] Allergies Active Allergy Reactions Criticality Noted Date [...] 36.5 C (97.7 F) 01/24/2020 8:12 AM DEFENSE ANALYST Respiratory Rate 18 12/22/2023 3:19 PM CDT [...] Completed 10/06/2010 , 02/03/2010, 09/07/2009 Care Teams Knot Tying Operator Relationship Specialty Start Date End Date Kike Day MD [address] [place] [address] PCP - General Internal Medicine 05/24/19
--- OUTSIDE RECORDS SUMMARY | 2024-11-04 08:15 | XMS_ITS | Clinical Summary ---
Author Organization [facility] Address [facility] [place] [address] Care Team Providers Care Covering Machine Tender Name Role Phone WoodRonal mcdermott Primary Care Provider [phone] Allergies Active Allergy Reactions Criticality Noted Date Comments Sulfa Antibiotics Unknown,Rash Medium 01/14/2020 Medications metoprolol tartrate (LOPRESSOR) 100 MG tablet Take one tablet (100mg total) by mouth ONE HOUR PRIOR TO CORONARY CTA. 1 tablet 12/04/2023 Active aspirin EC (ECOTRIN) 81 MG tablet Take 1 tablet (81 mg total) by mouth daily. 02/05/2024 Active rosuvastatin (CRESTOR) 10 MG tablet Take 1 tablet (10 mg total) by mouth nightly at bedtime. 90 tablet 2 06/30/2024 Active amLODIPine-Olme sartan 10-20 MG Tab TAKE 1 TABLET BY MOUTH DAILY 30 tablet 7 09/09/2024 Active Active Problems Problem Noted Date Diagnosed Date Essential (primary) hypertension 12/02/2023 Encounters Date Type Department Care Team Description 08/11/2024 [facility] [address] [address] Nataliia Garcia MD Refill Request (AMLODIPINE/OLMESARTAN) from Last 3 Months Immunizations Immunization Administration Dates Next Due Anthrax Vaccine 11/08/2017, 4,08/06/2009,04/04,02/13/2002 Dtap (Acel-Immune) 11/08/2006 H1N1 Injectable 2009 Influenza 08/06/2009 Hepatitis A (Havrix 1440 El.U) [...] 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 [address] [place], [place] [phone] Health Maintenance Due Date Last Done Comments [...] patient's age to complete this topic Insurance [facility] Care Teams Covering Machine Tender Relationship Specialty Start Date End Date Ronal Barriga DO [facility] [address] [address] PCP - General FAMILY PRACTICE 09/29/23
--- OUTSIDE RECORDS SUMMARY | 2024-11-04 08:15 | XMS_ITS | Clinical Summary ---
Author Organization [facility] Address [address] [place] [address] Care Team Providers Care Stock Dealer Name Role Phone Unavailable Primary Care Provider Unavailabl e Immunizations Immunization Administration Dates Next Due Covid-19 Vaccine, Vector-nr, Rs-ad26, Pf, 0.5 Ml (Panève/J&Infochimps) 11/12/2020 Social History Tobacco Use Types Packs/Day Years Used Date Smoking Tobacco: Never Assessed Sex and Gender Information Value Date Recorded Sex Assigned at Not on file Legal Sex Male 11:04 PM CDT Gender Identity Not on file Sexual Orientation Not on file Plan of Treatment Health Maintenance Due Date Last Done Comments Hepatitis C Virus (HCV) Screening 1970 TdaP Immunization 1970 Hepatitis B Immunization (1 of 3 - 19+ 3-dose series) 1989 Cologuard 05/28/2015 Colonoscopy 05/28/2015 Colorectal Cancer Screening 05/28/2015 Immunochemical Fecal Occult Blood 05/28/2015 Pneumococcal Immunization (5 0+ years) (1 of 1 - PCV) 2020 Zoster Immunization (1 of 2) 2020 Influenza Immunization (#1) 2024 11/0 09/2019, 12/13/2017, 02/01/2017 SARS-COV-2 Immunization (2 - season) 2024 11/12/2020 Respiratory Syncytial Virus (RSV) Immunization (Adult) (1 - 1-dose 75+ series) 2045 Human Papillomavirus (HPV) Immunization Aged Out No longer eligible b ased on patient's age to complete this topic Meningococcal Immunization (ACWY) Aged Out No longer eligible b ased on patient's age to complete this topic Rotavirus Immunization Aged Out No lo nger eligible based on patient's age to complete this topic
[2024-11-04 13:20] LABS: Uric Acid 8.6 mg/dL (3.5-8.5)
[2024-11-13 13:08] LABS: Free Testosterone (Direct) 9.9 pg/mL (7.2-24.0)
== END 2024-11-04 08:13 | disposition home or self-care (01) ==
LOC: ANHGOSHLAB 08:12
PROVIDERS: PCP Family Medicine; Visit Provider Family Medicine
DX: R79.89 Other specified abnormal findings of blood chemistry (principal); M10.9 Gout, unspecified
CPT/HCPCS: 36415; 84402; 84403; 84550

== ENCOUNTER 2024-12-08 08:17 | Outpatient (CLI) | payer BC, SELFPAY ==
[2024-12-08 11:07] LABS: Uric Acid 7.0 mg/dL (3.5-8.5)
== END 2024-12-08 08:18 | disposition home or self-care (01) ==
LOC: ANHGOSHLAB 08:18
PROVIDERS: PCP Family Medicine; Visit Provider Family Medicine
DX: M10.9 Gout, unspecified (principal)
CPT/HCPCS: 36415; 84550

== ENCOUNTER 2024-12-16 11:35 | Outpatient (CLI) | payer BC, SELFPAY ==
--- NOTE | ~2024-12-16 | MR_ITS ---
EXAMINATION: MR shoulder RT wo con DATE: 12/16/2024 12:21 INDICATION: Right shoulder pain. TECHNIQUE: Magnetic resonance imaging (MRI) of the right shoulder was performed without intravenous contrast. Sequences included axial PD-weighted FS FSE, coronal oblique PD-weighted FS FSE and T2-weighted FS FSE, and sagittal oblique T2-weighted FS FSE and T1-weighted FSE. COMPARISON: None. FINDINGS: Coracoacromial arch: The acromion undersurface is flat in morphology (type I). There is moderate acromioclavicular joint osteoarthritis. There is mild subacromial/subdeltoid bursitis. Rotator cuff: There is moderate supraspinatus and infraspinatus tendinopathy. There is calcific tendinitis of supraspinatus tendon. Teres minor tendon is normal. There is moderate subscapularis tendinopathy. Biceps tendon and glenoid labrum: Biceps tendon is in bicipital groove. There is moderate biceps tendinopathy. There is extensive tearing of the glenoid labrum. Fluid: There is a moderate-sized glenohumeral joint effusion. Bones/cartilage: There is extensive full-thickness cartilage loss of glenoid with bone volume loss of posterior glenoid. There is extensive full-thickness cartilage loss of humeral head, which is aspherical. There are large osteophytes. IMPRESSION: 1. Severe glenohumeral joint osteoarthritis. 2. Moderate acromioclavicular joint osteoarthritis. 3. Moderate rotator cuff tendinopathy. No tear. Calcific tendinitis of supraspinatus. 4. Moderate biceps tendinopathy. 5. Moderate-sized glenohumeral joint effusion. 6. Mild subacromial/subdeltoid bursitis. Reviewed, dictated and finalized at location E. IMPRESSION: 1. Severe glenohumeral joint osteoarthritis. 2. Moderate acromioclavicular joint osteoarthritis. 3. Moderate rotator cuff tendinopathy. No tear. Calcific tendinitis of supraspi natus. 4. Moderate biceps tendinopathy. 5. Moderate-sized glenohumeral joint effusion. 6. Mild subacromial/subdeltoid bursitis.
== END 2024-12-16 11:36 | disposition home or self-care (01) ==
PROVIDERS: PCP Family Medicine; Visit Provider Family Medicine
DX: M19.011 Primary osteoarthritis, right shoulder (principal); M25.411 Effusion, right shoulder; M75.51 Bursitis of right shoulder
CPT/HCPCS: 73221

== ENCOUNTER 2024-12-27 11:34 | Outpatient (CLI) | payer BC, SELFPAY ==
--- NOTE | ~2024-12-27 | XR_ITS ---
EXAMINATION: XR shoulder RT min 2V, 12/27/2024 11:55 CDT HISTORY: M25.511 - Pain in right shoulder COMPARISON: No comparisons available. Findings: No acute fracture or malalignment. Severe degenerative changes Soft tissues unremarkable. Impression: No acute fracture or malalignment. Reviewed, dictated and finalized at location P. Impression: No acute fracture or malalignment.
== END 2024-12-27 11:35 | disposition home or self-care (01) ==
LOC: MICIMG 11:35
PROVIDERS: PCP Orthopaedic Surgery; Visit Provider Family Medicine
DX: M25.511 Pain in right shoulder (principal)
CPT/HCPCS: 73030

== ENCOUNTER 2025-01-04 11:42 | Outpatient (CLI) | payer BC, SELFPAY ==
[2025-01-04 13:11] LABS: Uric Acid 5.2 mg/dL (3.5-8.5)
--- OUTSIDE RECORDS SUMMARY | 2025-01-04 13:56 | XMS_ITS | Clinical Summary ---
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 Encounters Date Type Department Care Team Description 12/20/2024 3:45 PM CDT Office Visit [facility] [address] [place] [address] Mathew Yoder II, MD 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 (Primary Dx) from Last 3 Months Surgical History Surgery Date Site/Laterality Comments EAR [...] Tobacco: Some Days Cigars Smokeless Tobacco: Never Sex and Gender Information Value Date Recorded Sex Assigned at Not on file Legal Sex Male 2:22 PM CDT Gender Identity Not on file Sexual Orientation Not on file Last Filed Vital Signs Vital Sign Reading Time Taken Comments Blood Pressure 137/90 06/11/2017 10:35 AM CDT Pulse 77 06/11/2017 10:35 AM CDT Temperature 36.5 C (97.7 F) 01/24/2020 8:12 AM LITERACY TUTOR Respiratory Rate 20 12/20/2024 3:52 PM CDT Oxygen Saturation 100% 06/11/2017 10:35 AM CDT Inhaled Oxygen Concentration - - Weight 96.2 kg (212 lb 1.3 oz) 12/20/2024 3:52 P M CDT Height 182.9 cm (6') 12/20/2024 3:52 PM CDT Body Mass Index 28.76 12/20/2024 3:52 PM CDT Plan of Treatment Health Maintenance Due Date Last Done Comments Colon Cancer Screening-Colonoscopy 1970 Depression Screening 1970 Hepatitis C Screening 1970 Prostate Cancer Screening-PSA 1970 Regular Well Visit/Exam 18-64 1988 Pneumococcal vaccine <65 (1 of 2 - PCV) 1989 Zoster Vaccine (1 of 2) 2020 Covid-19 Vaccine (2 - 2024-2 6 season) 2024 11/12/2020 Influenza Vaccine (#1) 2024 4, 02/04/2021, 01/08/2020, Additional history exists DTaP/Tdap/Td Vaccine (4 - Td or Tdap) 02/01/2027 02/01/2017, 11/08/2006, 11/08/2006, Additional history exists Hepatitis B Screening Completed 10/06/2010 , 02/03/2010, 09/07/2009 Care Teams Tuber Machine Cutter Relationship Specialty Start Date End Date Kike Day MD [address] [place] [address] PCP - General Internal Medicine 05/24/19
--- OUTSIDE RECORDS SUMMARY | 2025-01-04 13:56 | XMS_ITS | Clinical Summary ---
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 Not [...] st Contact Info) Description 02/14/2025 12:45 PM FERRIS WHEEL OPERATOR Office Visit [facility], [address] [place] [address] Naatliia Garcia MD [facility] [address] [place], [place] [id number] Health Maintenance Due Date Last Done Comments ASCVD LDL 1970 Colorectal Cancer Screening Colonoscopy (10 Years) 1970 Annual Physical 1973 Hepatitis C 1988 Pneumococcal Vaccine: 50+ Years (1 of 2 - PCV) 1989 Zoster Vaccines (1 of 2) 2020 COVID-19 Vaccine (2 - season) 2024 11/12/2020 Influenza Adult (#1) 2024 02/15/2024, 02/04/2021, 01/08/2020, Additional history exists DTaP, Tdap and Td Vaccines (4 - Td or Tdap) 02/01/2027 02/01/2017, 11/08/2006, 11/08/2006, Additional history exists Hepatitis A Vaccines Aged Out 06/05/1998, 08/24/18 97 No longer eligible based on patient's age to complete this topic Hepatitis B Vaccines Completed 10/06/2010, 02/03/2010, 09/07/2009 Meningococcal Vaccine Aged Out 10/06/2010, 004 No longer eligible based on patient's age to complete this topic Meningococcal B Vaccine Aged Out No l onger eligible based on patient's age to complete this topic RSV Immunizations Under 20 Months Aged Out No longer eligible based on patient's age to complete this topic Insurance [facility] Care Teams Microarray Operations Vice President Relationship Specialty Start Date End Date Ronal Barriga DO [facility] [address] [address] PCP - General FAMILY PRACTICE 09/29/23
--- OUTSIDE RECORDS SUMMARY | 2025-01-04 13:56 | XMS_ITS | Clinical Summary ---
Author Organization [facility] Address [address] [place] [address] Care Team Providers Care Community Service Representative Name Role Phone Unavailable Primary Care Provider Unavailabl e Immunizations Immunization Administration Dates Next Due Covid-19 Vaccine, Vector-nr, Rs-ad26, Pf, 0.5 Ml ([employer]) 11/12/2020 Social History Tobacco Use Types Packs/Day [...]
== END 2025-01-04 11:43 | disposition home or self-care (01) ==
LOC: ANHGOSHLAB 11:43
PROVIDERS: PCP Family Medicine; Visit Provider Family Medicine
DX: M10.9 Gout, unspecified (principal); M25.511 Pain in right shoulder
CPT/HCPCS: 36415; 84550

== ENCOUNTER 2025-03-02 10:30 | Outpatient (CLI) | payer BC, SELFPAY ==
--- OUTSIDE RECORDS SUMMARY | 2025-03-02 10:43 | XMS_ITS | Encounter Summary ---
Author Organization [facility] Address [address] [place] [address] Care Team Providers Care School Aide Name Role Phone Que Murrieta MD Primary Care Provider [phone] Encounter Details Date Type Department Care Team (Late Contact Info) Description 02/18/2025 Abstract [facility] [address] [place], [place] [phone] Rhoda Albarado MA Social History Tobacco Use Types Packs/Day Years Used Date Smoking Tobacco: Some Days Cigars Smokeless Tobacco: Never Alcohol Use Standard Drinks/Week Comments Not Currently 0 (1 standard drink = 0.6 oz pur e alcohol) Sex and Gender Information Value Date Recorded Sex Assigned at Not on file Legal Sex Male 12:52 PM CDT Gender Identity Not on file Sexual Orientation Not on file 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 Not on file documented as of this encounter Plan of Treatment Upcoming Encounters Date Type Department Care Team (Late st Contact Info) Description 02/13/2026 12:00 PM REGIONAL SALES ASSOCIATE Office [facility] [facility], [facility] [address] [place], [place] [phone] Nataliia Garcia MD [facility] [address] [place], [place] [phone] documented as of this encounter Procedures Procedure Name Priority Date/Time Associated Diagnosis Comments APOLIPOPROTEIN B Routine 09/09/2024 COMPREHENSIVE METABOLIC PANEL Routine 09/09/2024 LIPID PANEL Routine 09/09/2024 CBC, MANUAL DIFF Routine 09/09/2024 VITAMIN D, 25 OH Routine 09/09/2024 documented in this encounter Results * APOLIPOPROTEIN B (09/09/2024) Pathologist [facility] APOLIPOPROTEIN B 61 09/09/2024 us Default History Genericprovider LABORATORY Final Result * VITAMIN D, 25 OH (09/09/2024) [facility] VITAMIN D 25 HYDROXY S/P/B 47.6 09/09/2024 us Default History Genericprovider LABORATORY Final Result * COMPREHENSIVE METABOLIC PANEL (09/09/2024) Pathologist [facility] SODIUM S/P/B 136 GLUCOSE 108 mg/dL AST 53 BUN 22 CREATININE S/P/B 1.03 0.7 - 1.3 CALCIUM S/P/B 9.6 POTASSIUM S/P/B 4.4 CHLORIDE S/P/B 102 ALT 44 GFR ESTIMATE >60 us Default History Genericprovider LABORATORY Final Result * LIPID PANEL (09/09/2024) Pathologist [facility] CHOLESTEROL 135 TRIGLYCERIDES 117 HDL 44 LDL (CALCULATED) 45 us Default History Genericprovider LABORATORY Final Result * CBC, MANUAL DIFF (09/09/2024) Pathologist [facility] WBC 4.6 HGB 13.7 HCT 40.7 PLT 178 BLOOD VENOUS BLOOD SPECIMEN / Unknown us Default History Genericprovider LABORATORY Final Result documented in this encounter Visit Diagnoses Not on filedocumented in this encounter Care Teams School Aide Relationship Specialty Start Date End Date Que Murrieta MD [place] [id number] PCP - General 02/14/25 documented as of this encounter
--- OUTSIDE RECORDS SUMMARY | 2025-03-02 10:43 | XMS_ITS | Clinical Summary ---
Author Organization [facility] Address [address] [place] [address] Care Team Providers Care Green Building Design Specialist Name Role Phone Que Murrieta MD Primary Care Provider [phone] Allergies Active Allergy Reactions Criticality Noted Date Comments Sulfa Antibiotics Unknown,Rash Medium 01/14/2020 Medications aspirin EC (ECOTRIN) 81 MG tablet Take 1 tablet (81 mg total) by mouth daily. 4 Active rosuvastatin (CRESTOR) 10 MG tablet Take 1 tablet (10 mg total) by mouth nightly at bedtime. 90 tablet 2 5 Active amLODIPine-Olm esartan 10-20 MG Tab TAKE 1 TABLET BY MOUTH DAILY 30 tablet 7 5 Active allopurinol (ZYLOPRIM) 100 MG tablet Take 2 tablets (200 mg total) by mouth daily. 5 Active testosterone (ANDROGEL) 50 MG of testosterone/5 GM (1%) Gel gel Place 1 packet (50 mg of testosterone total) onto the skin daily. 5 Active metoprolol tartrate (LOPRESSOR) 100 MG tablet Take one tablet (100mg total) by mouth ONE HOUR PRIOR TO CORONARY CTA. 1 tablet 4 025 Discontin ued(Thera py completed ) Active Problems Problem Noted Date Diagnosed Date Essential (primary) hypertension 12/02/2023 Encounters Date Type Department Care Team Description 02/18/2025 Abstract [facility], [place] [address] [place] [address] Rhoda Albarado MA 02/14/2025 12:45 PM ECOMMERCE PROJECT MANAGER Office Visit [facility], [address] [address] Nataliia Garcia MD Follow Up (Annual ) 02/14/2025 Travel from Last 3 Months Immunizations Immunization Administration [...] 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 Not on file Not on file Last Filed Vital Signs Vital Sign Reading Time Taken Comments Blood Pressure 120/78 02/14/2025 12:52 PM ECOMMER[employer] PROJECT MANAGER Pulse 84 02/14/2025 12:52 PM ECOMMERCE PROJECT MANAGER Temperature 36.7 C (98 F) 09/29/2023 12:00 PM CDT Respiratory Rate 18 09/29/2023 3:40 PM CDT Oxygen Saturation 98% 02/14/2025 12:52 PM ECOMMERCE PROJECT MANAGER Inhaled Oxygen Concentration - - Weight 103 kg (227 lb) 02/14/2025 12:52 PM ECOMMERCE PROJECT MANAGER Height 182.9 cm (6') 02/14/2025 12:52 PM ECOMMERCE PROJECT MANAGER Body Mass Index 30.79 02/14/2025 12:52 PM ECOMMERCE PROJECT MANAGER Plan of Treatment Upcoming Encounters Date Type Department Care Team (Late st Contact Info) Description 02/13/2026 12:00 PM ECOMMERCE PROJECT MANAGER [facility] [place] [address] [place], [place] [id number] Nataliia Garcia MD [facility] [address] [place], [place] [id number] Health Maintenance Due Date Last Done Comments Colorectal Cancer Screening Colonoscopy (10 Years) 1970 Annual Physical 1973 Hepatitis C 1988 Pneumococcal Vaccine: 50+ Years (1 of 2 - PCV) 1989 Zoster Vaccines (1 of 2) 2020 COVID-19 Vaccine (2 - 2024- season) 2024 11/12/2020 Influenza Adult (#1) 2024 [...] patient's age to complete this topic Insurance [facility] Care Teams Green Building Design Specialist Relationship Specialty Start Date End Date Que Murrieta MD [address] [place] [address] PCP - General 02/14/25
--- OUTSIDE RECORDS SUMMARY | 2025-03-02 10:43 | XMS_ITS | Clinical Summary ---
Author Organization [facility] Address [address] [place] [address] Care Team Providers Care Supply Chain Director Name Role Phone Unavailable Primary Care Provider Unavailabl e Immunizations Immunization Administration Dates Next Due Covid-19 Vaccine, Vector-nr, Rs-ad26, Pf, 0.5 Ml ([employer]) 11/12/2020 Social History Tobacco Use Types Packs/Day [...] 75+ series) 2045 Human Papillomavirus (HPV) Immunization (No Doses Required) Completed Meningococcal Immunization (ACWY) Aged Out No longer eligible b ased on patient's age to complete this topic Rotavirus Immunization Aged Out No lo nger eligible based on patient's age to complete this topic
--- OUTSIDE RECORDS SUMMARY | 2025-03-02 10:43 | XMS_ITS | Clinical Summary ---
Author Organization [address] Address [address] [place] [id number] Care Team Providers Care Heating And Cooling Technician Name Role Phone Kike Day MD Primary Care Provider [phone] Allergies Active Allergy Reactions Criticality Noted Date [...] Description 12/20/2024 3:45 PM CDT Office Visit [facility] [address] [place] [phone] Mathew Yoder II, MD Malignant neoplasm [...] 36.5 C (97.7 F) 01/24/2020 8:12 AM HOUSEKEEPER MANAGER Respiratory Rate 20 12/20/2024 3:52 PM CDT [...] Completed 10/06/2010 , 02/03/2010, 09/07/2009 Care Teams Heating And Cooling Technician Relationship Specialty Start Date End Date Kike Day MD [address] [place] [address] PCP - General Internal Medicine 05/24/19
[2025-03-02 18:35] LABS: Hematocrit 40.5 % (42.0-52.0); Hemoglobin 14.0 g/dL (14.0-18.0); Immature Granulocyte Percent A 0.3 % (0-0.5); Lymphocytes Absolute Auto 1.45 K/mm3 (0.9-3.2); Mean Corpuscular HGB Conc 34.6 g/dl (32-36); Mean Corpuscular Hemoglobin 32.9 pg (26-34); Mean Corpuscular Volume 95.3 fl (80-100); Nucleated Red Blood Cells Absolute Auto 0.000 K/mm3 (0.0-0.012); Nucleated Red Blood Cells Perc 0.0 % (0.0-0.2); Platelet Count Result 148 k/mm3 (150-375); Red Blood Count 4.25 M/mm3 (4.6-6.20); White Blood Count 3.5 K/mm3 (4.5-10.0)
[2025-03-02 19:33] LABS: Prostate Specific Antigen 1.7 ng/mL (< OR = 4.0)
[2025-03-05 10:08] LABS: Free Testosterone (Direct) 10.9 pg/mL (7.2-24.0)
== END 2025-03-02 10:31 | disposition home or self-care (01) ==
PROVIDERS: PCP Family Medicine; Visit Provider Family Medicine
DX: E34.9 Endocrine disorder, unspecified (principal); R79.89 Other specified abnormal findings of blood chemistry; Z12.5 Encounter for screening for malignant neoplasm of prostate
CPT/HCPCS: 36415; 84153; 84402; 84403; 85025; G0103